=== PATIENT | female | born 1985 | race African-American/Black ===

== ENCOUNTER 2022-07-01 21:59 | Emergency (ER) | payer MEDICARE, OTHER ==
[~2022-07-01] VITALS: Ht 154.9 cm; Wt 54.4 kg
[~2022-07-01 21:59] MED LIST: NO KNOWN MEDICATIONS
--- NOTE | 2022-07-01 22:40 | NUR ---
BIBS C/O BILATERAL LOWER EXTREMITY SORENESS FOLLOWING AN EPISODE OF WEAKNESS WHILE DRIVING AT 1500. HX OF ISCHEMIC STROKE. STATES SYMPTOMS LASTED APPROXIMATELY 15-20 MINS AND RESOLVED BUT WANTED TO GET CHECKED DUE TO HER HX. PT AWAKE AND ALERT X4 BREATHING EVEN AND UNLABORED AMBULATORY WITH STEADY GAIT. NO NEURO DEFECITS NOTED. ALL V/S WNL.
--- NOTE | 2022-07-01 22:43 | NUR ---
URINE COLLECTED AND SENT TO LAB
[2022-07-01 23:12] LABS: BASOPHILS % (AUTO) 0.3 % (0.0-2.0); HEMATOCRIT 37 % (33-45); HEMOGLOBIN 12.1 g/dL (11.5-14.8); LYMPHOCYTES # (AUTO) 0.8 K/uL (0.8-4.8); LYMPHOCYTES % (AUTO) 15.1 % (20.0-44.0); MEAN CORPUSCULAR HGB CONC 33 g/dl (31.0-36.0); MEAN CORPUSCULAR VOLUME 84 fL (82-100); MONOCYTES # (AUTO) 0.4 K/uL (0.1-1.30); MONOCYTES % (AUTO) 7.5 % (2.0-12.0); NEUTROPHILS # (AUTO) 3.8 K/uL (1.8-8.9); NEUTROPHILS % (AUTO) 76.1 % (43.0-81.0); PLATELET COUNT (AUTO) 268 K/uL (150-450); RED BLOOD CELL COUNT(AUTO) 4.39 MIL/uL (4.0-5.2)
[2022-07-01 23:17] LABS: BILIRUBIN,URINE NEGATIVE (NEGATIVE); COLOR,URINE YELLOW (YELLOW); LEUKOCYTE ESTERASE ,URINE TRACE (NEGATIVE); NITRITE, URINE NEGATIVE (NEGATIVE); PROTEIN,URINE NEGATIVE (NEGATIVE); UGLUCOSE NEGATIVE (NEGATIVE); UROBILINOGEN,URINE 0.2 EU/dL (0.2)
--- NOTE | 2022-07-01 23:25 | NUR ---
PT TRANSPORTED TO [facility]IA [facility]
[2022-07-01 23:28] LABS: CALCIUM, SERUM 8.9 mg/dL (8.5-10.1); CARBON DIOXIDE 25 mmol/L (21-32); CHLORIDE 104 mmol/L (98-107); CREATININE 0.8 mg/dL (0.6-1.3); GLUCOSE 91 mg/dL (74-106); SODIUM SERUM 138 mmol/L (136-145); UREA NITROGEN, BLOOD 14 mg/dL (7-18)
--- NOTE | 2022-07-01 23:31 | NUR ---
PT RETURNED FROM [facility]IA [facility]
[2022-07-01 23:35] LABS: ALANINE AMINOTRANSFERASE 15 U/L (12-78); ALBUMIN 3.9 g/dL (3.4-5.0); ALKALINE PHOSPHATASE 61 U/L (46-116); ASPARTATE AMINOTRANSFERASE 14 U/L (15-37); BILIRUBIN,DIRECT 0.1 mg/dL (0.0-0.2); BILIRUBIN,TOTAL 0.2 mg/dL (0.2-1.0)
--- NOTE | 2022-07-02 00:15 | NUR ---
Patient discharged to home in stable condition. Written and verbal after care instructions given. Patient verbalizes understanding of instruction.
[2022-07-02 00:19] VITALS: BP 102/67
[2022-07-02 02:36] LABS: BACTERIA,URINE Rare /HPF (None Seen); RBC,URINE 0-2 /HPF (0-2); SQUAMOUS EPITHELIAL CELL,UR Few /HPF (None Seen)
== END 2022-07-02 00:23 | disposition home or self-care (01) ==
LOC: ER 22:12
DX: M79.10 Myalgia, unspecified site (principal); R53.1 Weakness; R51.9 Headache, unspecified; R42 Dizziness and giddiness; Z88.0 Allergy status to penicillin; Z88.8 Allergy status to other drugs, medicaments and biological substances
CPT/HCPCS: 36415; 70450-TC; 71045-TC; 80048-TC; 80076-TC; 81001; 82962-TC; 84484-TC; 84703-TC; 85025-TC; 87086-TC